=== PATIENT | female | born 2000 | race Caucasian/White ===

== ENCOUNTER 2022-05-12 15:13 | Emergency (ER) | payer OTHER, SELFPAY ==
[2022-05-12 15:47] VITALS: BP 112/65; PULSE 93; RESP 18; TEMP 36.5; O2SAT 97; BMI 34.3
--- NOTE | 2022-05-12 15:47 | ED.URI ---
HPI - URI/Sore Throat General Chief Complaint: Skin/Abscess/Foreign Body Stated Complaint: L Side Swollen Lymph Node Time Seen by Provider: 05/12/22 15:50 Source: patient Mode of arrival: ambulatory History of Present Illness HPI Narrative: 21-year-old female with no significant past medical history presenting to the ED complaining of red swollen painful lymph node to left groin since yesterday. Admits to increasing erythema to area. Denies fever, chills, nausea/vomiting, abdominal pain, dysuria, difficulty/inability to urinate/defecate. Denies pointing/drainage Onset (ago): day(s) Related Data Previous Rx's Medication Instructions Recorded cephalexin 500 mg capsule 500 mg PO QID 7 days #28 caps 05/12/22 doxycycline hyclate 100 mg tablet 100 mg PO BID 7 days #14 tabs 05/12/22 Allergies Allergy/AdvReac Type Severity Reaction Status Date / Time No Known Allergies Allergy Verified 05/12/22 15:51 Review of Systems Review of Systems: Constitutional: No Fever, No Chills ENT/Mouth: No Ear Pain, No Nasal Congestion, No Sinus Pain, No sore throat, No Rhinorrhea, No Swallowing Difficulty Cardiovascular: No Chest Pain, No SOB Respiratory: No Cough, No Sputum Gastrointestinal: No Nausea, No Vomiting, No Abdominal pain Genitourinary: No Dysuria, No Urinary Frequency, No Hematuria, No Flank Pain Musculoskeletal: No joint pain, No Myalgias, No Joint Swelling Skin: + Skin Lesions, No rash Neuro: No Weakness, No Numbness, No Paresthesias Yes all other systems are reviewed and are negative Constitutional: Constitutional: Reports as per [facility] Past Medical History Attestation statement: The following information was validated with the patient. Social History Social History Advance Directives: No Advance Directives Information Provided: Yes Physical Exam Vital Signs: Vital Signs: Last Vital Signs Temp 97.7 F 05/12/22 15:47 Pulse 93 05/12/22 15:47 Resp 18 05/12/22 15:47 BP 112/65 05/12/22 15:47 Pulse Ox 97 05/12/22 15:47 O2 Del Method 05/12/22 15:47 BMI result Body Mass Index 34.3 Const: General: cooperative, healthy appearing and no acute distress Orientation/consciousness: patient oriented x3 Limitations: no limitations HEENT: Head: Yes normal to inspection and Yes atraumatic Ears: hearing grossly normal bilaterally General nose exam: Normal external nose present Face and sinus: Yes normal facial exam Eyes: General: appearance normal, both eyes and all related structures EOM: EOMs intact bilaterally Neck: Neck: Yes normal visual inspection and Yes no meningeal signs Resp: Effort & Inspection: normal respiratory effort and no respiratory distress Cardio: Rate: regular rate Heart sounds: S1 normal heart sound present and S2 normal heart sound present GI: Inspection: Yes normal to inspection Palpation (GI): Soft to palpation and nontender Skin: Other: + small erythematous indurated lump to left groin/inguinal area with surrounding erythema/cellulitis and warmth. No fluctuance/pointing. Rashes: no rashes Neuro: General: patient oriented x3, tone normal and no meningeal signs Gait exam (Neuro): Normal gait present Extrem: General: Yes normal to inspection Medical Decision Making Medical Decision Making MDM Narrative: 21-year-old female with no significant past medical history presenting to the ED complaining of red swollen painful lymph node to left groin since yesterday. On exam vital signs stable, NAD, nontoxic appearing, physical exam as noted above. Concern for infected hair follicle/indurated abscess with surrounding cellulitis. No evidence of [place] gangrene. Plan: P.o. antibiotics, warm compresses, PCP follow-up Differential Diagnosis Differential Diagnoses: The differential diagnosis associated with the presentation includes as above Prescription Management I considered prescription management with: Pain Medication and Antibiotic Discharge Plan Discharge Clinical Impression: Abscess, Cellulitis Patient Disposition: Home, Self-Care Instructions: Cellulitis (ED), Abscess (ED), Warm Compress or Soak (ED) Additional Instructions: Keflex and doxy your antibiotics as prescribed. Apply warm compresses. Keep close eye on the area if is worsening, spreading, turns to duckworth return to the emergency department. Prescriptions: New cephalexin 500 mg capsule 500 mg PO QID 7 Days Qty: 28 0RF doxycycline hyclate 100 mg tablet 100 mg PO BID 7 Days Qty: 14 0RF Referrals: Physician,None [Primary Care Provider] -
== END 2022-05-12 16:12 | disposition home or self-care (01) ==
PROVIDERS: Emergency Provider Student in an Organized Health Care Education/Training Program
DX: L02.214 Cutaneous abscess of groin (principal); L03.314 Cellulitis of groin; R10.32 Left lower quadrant pain
CPT/HCPCS: 99282; 99283

== ENCOUNTER 2022-05-15 07:19 | Emergency (ER) | payer OTHER, SELFPAY ==
[2022-05-15 07:20] VITALS: BP 122/88; PULSE 81; RESP 18; TEMP 36.1; O2SAT 98; BMI 38.1
--- NOTE | 2022-05-15 08:11 | ED_ITS ---
HPI - Recheck/Abnormal Lab/Rx General Chief Complaint: Recheck/Abnormal Lab/Rx Stated Complaint: infection Time Seen by Provider: 05/15/22 07:58 Source: patient and old records reviewed Mode of arrival: ambulatory Limitations: no limitations History of Present Illness HPI narrative: 21 yo female presenting for evaluation of an ingrown hair/abscess that spontaneously drained this morning. She states she was seen here on 05/12 - diagnosed with ingrown hair w/ surrounding cellulitis, and was discharged with doxycycline and keflex. She states abscess was not incised. She reports this morning the abscess started draining on its own, mostly blood along with some pus. She reports ongoing pain but the surrounding redness is improved. No fevers at home. She has been compliant with antibiotics. MD complaint: wound re-check Initial visit (ago): day(s) () Initial visit for: cellulitis and abscess Returns today for: cellulitis follow-up Symptoms since prior visit: no new symptoms Context: other (Spontaneously started draining this morning that was concerned) Associated symptoms: none Treatments prior to arrival: heat therapy, dressings and given antibiotics on (05/12) Related Data Previous Rx's Medication Instructions Recorded cephalexin 500 mg capsule 500 mg PO QID 7 days #28 caps 05/12/22 doxycycline hyclate 100 mg tablet 100 mg PO BID 7 days #14 tabs 05/12/22 ibuprofen 600 mg tablet 600 mg PO Q8H PRN fever or pain 05/15/22 #14 tabs Allergies Allergy/AdvReac Type Severity Reaction Status Date / Time No Known Allergies Allergy Verified 05/12/22 15:51 Review of Systems Review of Systems: Yes all other systems are reviewed and are negative [facility] Social History Social History Advance Directives: No Advance Directives Information Provided: No Physical Exam Vital Signs: Vital Signs: Last Vital Signs Temp 96.9 F 05/15/22 07:20 Pulse 81 05/15/22 07:20 Resp 18 05/15/22 07:20 BP 122/88 05/15/22 07:20 Pulse Ox 98 05/15/22 07:20 O2 Del Method 05/15/22 07:20 BMI result Body Mass Index 38.1 Appearance: Alert. Oriented X3. No acute distress. HEENT: normal inspection CVS: Normal heart rate and rhythm. Pulses normal. Respiratory: No respiratory distress. Skin: Skin warm and dry. Normal skin color. Normal skin turgor. No rashes. Extremities: Left upper inguinal area with a small area of induration and mild erythema with central opening draining bloody material. No fluctuance. No inguinal lymphadenopathy. Neuro/psych: Oriented X 3. No motor deficit. No sensory deficit. Normal speech and cognition. Anxious Course Course Course Narrative: 21-year-old female presenting to the ER for evaluation of left inguinal abscess/ingrown hair that spontaneously opened on its own today. Area seems to be draining appropriately. No additional fluctuance or purulent material was able to be drained today we discussed the management of abscesses and cellulitis. She is on the appropriate antibiotic therapy. She will continue warm compresses at home. Motrin ordered for pain. She was given strict return precautions and is stable for discharge home. All questions were answered. Medical Decision Making Differential Diagnosis Differential Diagnoses: The differential diagnosis associated with the presentation includes Abscess, cellulitis, Fourneir's gangrene, necrotizing infection Independent Historian Clinical information obtained from an independent historian. History obtained from or confirmed by: Friend External Record Review External record reviewed: Outpatient record last ER visit 05/12 reviewed Tests considered The following testing was considered but not selected: no need for labs today, nontoxic, not septic appearing. Prescription Management I considered prescription management with: Pain Medication motrin ordered. no need to escalate to IV abx, continue PO doxy and keflex Critical Care Time Critical Care Time Critical Care Time: No Discharge Plan Discharge Clinical Impression: Abscess Patient Disposition: Home, Self-Care Instructions: Abscess Follow-up (ED) Additional Instructions: Continue previously prescribed antibiotics Use warm compresses several times per day to help increase blood flow and fight the infection If you notice increased redness or swelling, or develop fevers call your doctor or come back to the ER for further evaluation Prescriptions: New ibuprofen 600 mg tablet 600 mg PO Q8H PRN (Reason: fever or pain) Qty: 14 0RF No Action cephalexin 500 mg capsule 500 mg PO QID 7 Days Qty: 28 0RF doxycycline hyclate 100 mg tablet 100 mg PO BID 7 Days Qty: 14 0RF Stand Alone Forms: Work/School Release Interventions: ED Discharge Assessment Last Done: 05/15/22 08:18 Discharge Date/Time: 05/15/22 08:28
== END 2022-05-15 08:28 | disposition home or self-care (01) ==
LOC: HO.ED 08:20
PROVIDERS: Emergency Provider Emergency Medicine Emergency Medical Services
DX: L02.416 Cutaneous abscess of left lower limb (principal)
CPT/HCPCS: 99282; 99283

== ENCOUNTER 2025-04-13 01:55 | Emergency (ER) | payer OTHER, SELFPAY ==
--- NOTE | ~2025-04-13 | XR_ITS ---
CLINICAL HISTORY: constipation? low suspicion 1 view abdomen Comparison: None provided Findings: No pneumoperitoneum or pneumatosis. No abnormal calcifications. Moderate stool burden in the ascending colon. No acute fractures. IMPRESSION: The bowel gas pattern is normal This document has been electronically signed by: Ignacio Ghotra III, MD PHD on 04/13/2025 04:34:38
[2025-04-13 01:58] VITALS: BP 141/82; PULSE 84; RESP 20; TEMP 36.6; O2SAT 97; BMI 38.6
[2025-04-13 02:20] LABS: MANUAL DIFF FLAG NO
[2025-04-13 02:21] LABS: Hematocrit 43.7 % (37.0-47.0); Hemoglobin 15.2 g/dl (12.0-16.0); Imm Gran Abs Auto 0.04 X10*3/uL (0.00-0.03); Imm Gran Pct Auto 0.4 % (0.0-0.4); Lymphocytes Absolute Auto 1.9 X10*3/uL (1.2-4.9); Mean Corpuscular HGB Conc 34.8 g/dl (31.0-35.0); Mean Corpuscular Hemoglobin 28.1 pg (27.0-33.0); Mean Corpuscular Volume 80.9 fL (80.0-98.0); NRBC Abs Auto 0.000 X10*3/uL (0.0-0.012); NRBC Pct Auto 0.0 /100WBC (0.0-0.2); Platelet Count 170 X10*3/uL (160-400); Red Blood Count 5.40 X10*6/uL (4.20-5.50); White Blood Count 10.9 X10*3/uL (4.8-10.8)
--- OUTSIDE RECORDS SUMMARY | 2025-04-13 02:24 | XMS_ITS | Encounter Summary ---
Author Organization [facility] Address [address] [place] [id number] Phone Care Team Providers Care Stores Laborer Name Role Phone Uyen Acuña NP Primary Care Provider + Unknown, Unknown Primary Care Provider Yolanda augustine Pcp, Unknown Primary Care Provider Megan Lundberg Primary Care Provider Ivonne Kingston Primary Care Provider [phone] Encounter Details Date Type Department Care Team (Late st Contact Info) Description 09/07/2021 Procedure Pass [facility] [address] [place] [address] Social History Tobacco Use Types Packs/Day Years Used Date Smoking Tobacco: Never Smokeless Tobacco: Never Comments Unknown Sex and Gender Information Value Date Recorded Sex Assigned at Female 07/29/2021 3:50 PM EDT Legal Sex Female 8:47 PM EDT Gender Identity Female 07/29/2021 3:50 PM EDT Sexual Orientation Straight 07/29/2021 3: 50 PM EDT documented as of this encounter Plan of Treatment Not on file documented as of this encounter Visit Diagnoses Not on filedocumented in this encounter Additional Health Concerns Assessment Noted Time PHQ-9 Depression Total Score: 0 01/16/20 22 12:42 PM EDT PHQ-2 Depression Total Score: 0 01/16/20 22 12:42 PM EDT documented as of this encounter Care Teams Stores Laborer Relationship Specialty Start Date End Date Uyen Acuña NP [address] [place] [id number] PCP - General Family Medicine 07/29/21 01/17/22 Unknown, Unknown, PCP - General 01/18/22 02/14/22 Pcp, Unknown PCP - General 02/15/22 05/24/22 Megan Quintanilla PA [address] [place] [id number] PCP - General 05/25/22 10/30/23 Ivonne Kingston PA [address] [place] [id number] [email or web address] PCP - General Physician Filenet Developer 10/31/23 documented as of this encounter Additional Source Comments The information contained in this document represents components of the legal health record. It is not the complete legal health record.[facility]
--- OUTSIDE RECORDS SUMMARY | 2025-04-13 02:24 | XMS_ITS | Clinical Summary ---
Author Organization [facility] Address [address] [place] [id number] Phone Care Team Providers Care Pickle Pumper Name Role Phone Ivonne Kingston Primary Care Provider [phone] Allergies Active Allergy Reactions Criticality Noted Date Comments Levetiracetam 08/09/2022 Other reaction(s): Behavior change Medications melatonin 3 mg Tab Take 3 mg by mouth. Active cholecalciferol (VITAMIN D3) 400 unit tablet Take 400 Units by mouth daily. 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 Dysmenorrhea 08/09/2022 Overview (08/09/2022): Had US everything alright per patient Immunizations Immunization Administration Dates Next Due COVID-19 (Pre-02/28) Pfizer Vaccine, Bivalent 12+ 02/14/2022 COVID-19 (Pre-02/28) Pfizer Vaccine, mRNA, PF 02/20/2021,01/30/2021 Hepatitis B Adult 09/14/2021,,08/05/2000,1999,1999 INFLUENZA, SPLIT VIRUS, TRIVALENT PF 02/21/2024 Influenza, Unspecified Formulation 03/23/2023, MMR 12/23/2004,04/18/2001 Tdap 12/14/2011 Varicella 12/14/2011,11/14/2000 Family History Medical History Relation Comments No Known Problems Father Diabetes Maternal Grandmother AVM Mother Cancer Paternal Aunt Diabetes Paternal Grandfather Relation Status Comments Brother Alive Father Alive Maternal Grandfather Alive Maternal Grandmother Mother Alive Paternal Aunt Alive Paternal Grandfather Alive Social History Tobacco Use Types Packs/Day Years Used Date Smoking Tobacco: Never Smokeless Tobacco: Never Tobacco Cessation:Counseling Given: Not Answered Alcohol Use Standard Drinks/Week Comments Never 0 (1 standard drink = 0.6 oz pur e alcohol) Education Answer Date Recorded Are you interested in more education? Not on lauro e 09/03/2022 Are you concerned about learning? Not on file 09/03/2022 No 09/03/2022 No 09/03/2022 Digital Access Answer Date Recorded No 10/04/2022 No 10/04/2022 No 10/04/2022 Reliable internet access at home? Not on file 10/04/2022 Device with a working camera? Not on file Comments No Sex and Gender Information Value Date Recorded Sex Assigned at Female 07/29/2021 3:50 PM EDT Legal Sex Female 8:47 PM EDT Gender Identity Female 07/29/2021 3:50 PM EDT Sexual Orientation Straight 07/29/2021 3: 50 PM EDT Last Filed Vital Signs Vital Sign Reading Time Taken Comments Blood Pressure 108/74 08/09/2022 4:07 PM EDT Pulse 75 09/07/2021 2:59 PM EDT Temperature 36.6 C (97.8 F) 09/07/2021 2:59 PM EDT Respiratory Rate 16 09/07/2021 2:59 PM EDT Oxygen Saturation 99% 09/07/2021 2:59 PM EDT Inhaled Oxygen Concentration - - Weight 104.3 kg (230 lb) 12/26/2023 4:51 PM EDT Height 162.6 cm (5' 4 ) 12/26/2023 4:51 PM EDT Body Mass Index 39.48 12/26/2023 4:51 PM EDT Plan of Treatment Health Maintenance Due Date Last Done Comments SMOKING Hx and SMOKELESS TOBACCO SCREENING 11/05/2012 HEPATITIS C SCREENING 11/05/2017 HIV ONE-TIME SCREENING (18-65 YEARS) 11/05/2017 HPV VACCINES (2 - 3-dose series) 08/29/2020 08/01/2020 PAP SMEAR 11/05/2020 DEPRESSION SCREENING 01/15/2023 01/15/2022, 01/16/20 22 INFLUENZA VACCINE (#1) 2024 , 03/23/2023, 03/11/2022, Additional history exists COVID-19 VACCINE ( season) 2025 02/14/2022, 02/14/2022, 02/20/2021, Additional history exists Adult Td,Tdap Booster 05/24/2032 05/24/2022, 012 HIB VACCINES Completed 04/18/2001, 04/09, 03/07/2000, Additional history exists HEPATITIS A VACCINES Aged Out No long er eligible based on patient's age to complete this topic MENINGOCOCCAL VACCINES (ACWY) Aged Out No longer eligible based on patient's age to complete this topic MENINGOCOCCAL VACCINES (B) Aged Out N o longer eligible based on patient's age to complete this topic PNEUMOCOCCAL VACCINES (0-49 years) Aged Out No longer eligible based on patient's age to complete this topic Medical Devices Not on file Insurance [facility] PCP [employer] [address] [place] [address] NON NSPG PCP [facility] NON NSPG PCP [facility] NON NSPG PCP [facility] [facility] NON NSPG PCP [facility] [facility] NON NSPG PCP [employer] Care Teams Pickle Pumper Relationship Specialty Start Date End Date Ivonne Kingston PA [address] [place] [address] [email or web address] PCP - General Physician Fire Prevention Chief 10/31/23 Additional Source Comments The information contained in this document represents components of the legal health record. It is not the complete legal health record.[facility]
--- OUTSIDE RECORDS SUMMARY | 2025-04-13 02:24 | XMS_ITS | Encounter Summary ---
Author Organization [facility] Address [address] [place] [phone] Phone Care Team Providers Care Tip Bander Name Role Phone Ivonne Kingston Primary Care Provider [phone] Encounter Details Date Type Department Care Team (Late st Contact Info) Description 12/05/2023 Procedure Pass [facility], [address] [id number] Social History Tobacco Use Types Packs/Day Years Used Date Smoking Tobacco: Never Smokeless Tobacco: Never Alcohol Use Standard Drinks/Week Comments Never 0 [...] documented as of this encounter Care Teams Tip Bander Relationship Specialty Start Date End Date Ivonne Kingston PA [address] [address] [email or web address] PCP - General Physician Payroll Accounting Clerk 10/31/23 documented as of this encounter Additional Source Comments The information contained in this document represents components of the legal health record. It is not the complete legal health record.[facility]
[2025-04-13 02:36] LABS: Alanine Aminotransferase 20 U/L (0-31); Albumin Level 4.7 g/dL (3.5-5.0); Alkaline Phosphatase 78 U/L (39-117); Anion Gap 14 (12-20); Aspartate Amino Transferase 21 U/L (5-31); Blood Urea Nitrogen 14 mg/dL (9-16); Calcium 8.8 mg/dL (8.4-10.2); Carbon Dioxide 14 mmol/L (22-29); Chloride 117 mmol/L (96-108); Creatinine Clr Calc Pharmacy 108.6; Estimated Glomerular Filt Rate > 60; Potassium 3.5 mmol/L (3.3-5.1); Sodium 141 mmol/L (135-145); Total Protein 7.4 g/dL (6.5-8.0)
[2025-04-13 03:07] LABS: UPreg QC Valid YES
[2025-04-13 03:10] LABS: Appearance Urine Clear; Glucose Urine UA Negative (Negative); PH 5.0 (5.0-9.0); Specific Gravity - Urine 1.020 (1.005-1.025); UMIC TRIGGER UACC YES
[2025-04-13 03:12] LABS: UACC Culture Trigger YES
--- NOTE | 2025-04-13 03:49 | ED.ABDPAIN ---
HPI - Abdominal Pain General Chief Complaint: Abdominal Pain Stated Complaint: Stomach Pain Time Seen by Provider: 04/13/25 03:37 Source: patient Mode of arrival: ambulatory Limitations: no limitations History of Present Illness ED Provider: Dr. Yessica Jerry HPI narrative: Patient comes to the emergency room complaining of abdominal distention for the last 5 hours. Patient states that she believes that she has a small bowel obstruction. Patient has not had a small bowel obstruction before. Patient does not have any past surgical history. Complaining of nausea, no vomiting or diarrhea. Patient states that she has a lot of pressure in the bilateral parts of the abdomen. Denies fever or chills. Related Data Previous Rx's ?Medication ?Instructions ?Recorded cephalexin 500 mg capsule 500 mg PO QID 7 days #28 caps 05/12/22 doxycycline hyclate 100 mg tablet 100 mg PO BID 7 days #14 tabs 05/12/22 ibuprofen 600 mg tablet 600 mg PO Q8H PRN fever or pain 05/15/22 #14 tabs polyethylene glycol 3350 17 gram 17 g PO DAILY PRN laxative effect 04/13/25 oral powder packet (Miralax) #14 ea sulfamethoxazole 800 1 tab PO BID #5 tabs 04/13/25 mg-trimethoprim 160 mg tablet (Bactrim DS) Allergies Allergy/AdvReac Type Severity Reaction Status Date / Time No Known Allergies Allergy Verified 04/13/25 02:01 Review of Systems Review of Systems Constitutional : No Weight loss, No Fever, No Chills, No Night Sweats, No Fatigue, No Malaise ENT/Mouth : No Hearing loss, No Ear Pain, No Nasal Congestion, No Sinus Pain, No Hoarseness, No sore throat, No Rhinorrhea, No Swallowing Difficulty Eyes: No Eye Pain, No Swelling, No Redness, No Foreign Body, No Discharge, No Vision Changes Cardiovascular : No Chest Pain, No SOB, No Dyspnea on Exertion, No Orthopnea, No Edema, No Palpitations Respiratory : No Cough, No Sputum, No Wheezing, No Smoke Exposure, No Dyspnea Gastrointestinal : Complaining of Nausea, No Vomiting, No Diarrhea, No Constipation, complaining of the abdominal distention/pressure, discomfort Genitourinary : no irregular bleeding, No Dysuria, No Urinary Frequency, No Hematuria, No Urinary Incontinence, No Urgency, No Flank Pain, No Urinary Flow Changes, No Hesitancy Musculoskeletal : No joint pain, No Myalgias, No Joint Swelling Skin : No Skin Lesions, No rash Neuro : No Weakness, No Numbness, No Paresthesias, No Loss of Consciousness, No Dizziness, No Headache Psych : No Anxiety/Panic, No Depression, No SI/HI/AH/VH, No Social Issues, Heme/Lymph: No Bruising, No Bleeding,No Lymphadenopathy Endocrine : No Polyuria, No Polydipsia, No Temperature Intolerance [facility] Social History Social History Advance Directives: No Advance Directives Information Provided: No Physical Exam ED Exam Exam: Appearance: Alert. Oriented X3. No acute distress. Eyes: Pupils equal, round and reactive to light. ENT: Pharynx normal. Neck: Normal inspection. Neck supple. No lymph nodes noted. No crepitus CVS: Normal heart rate and rhythm. Pulses normal. Normal S1 and S2 Respiratory: No respiratory distress. Breath sounds normal. No Wheezing. No rales Abdomen: Soft , nondistended, mild pain to the patient over bilateral lower quadrants, no rebound or guarding, no flank pain, Skin: Skin warm and dry. Normal skin color. Normal skin turgor. Extremities: No lower extremity edema. No Lacerations. No Rash Neuro: Oriented X 3. No motor deficit. No sensory deficit. Moving all extremities. No slurred speech. CN 2 through 12 grossly intact Psych: calm, cooperative, normal affect Vital Signs: Vital Signs - 24 hr 04/13/25 01:58 Temperature 97.8 F Pulse Rate 84 Respiratory Rate 20 Blood Pressure 141/82 H Pulse Oximetry 97 Oxygen Delivery Method Room Air BMI result Body Mass Index 38.6 Medical Decision Making Medical Decision Making [facility] Narrative: My interpretation of labs: No significant abnormality in patient's hematology, chemistry fairly normal, no significant abnormality, normal LFTs, urinalysis positive for UTI, patient has leukocyte esterase, WBCs, +2 bacteria. Urinalysis negative for . Small amount of leukocyte esterase. On physical exam, I pushed pretty deep in all quadrants of the abdomen, no significant pain, no concerned for appendicitis or acute cholecystitis, also no concern for ovarian torsion KUB shows a large amount of stool in the ascending colon., no signs of obstruction. Patient was given the 1st dose of Bactrim in the ED Differential Diagnosis Differential Diagnoses: The differential diagnosis associated with the presentation includes (UTI, pyelonephritis, constipation) Lab Data MDM Lab Attestation statement: I reviewed the patient's lab results. 04/13/25 02:16 04/13/25 02:16 Labs: Lab Results 04/13/25 04/13/25 Range/Units 02:16 02:59 WBC 10.9 H (4.8-10.8) X10*3/uL RBC 5.40 (4.20-5.50) X10*6/uL Hgb 15.2 (12.0-16.0) g/dl Hct 43.7 (37.0-47.0) % MCV 80.9 (80.0-98.0) fL MCH 28.1 (27.0-33.0) pg MCHC 34.8 (31.0-35.0) g/dl RDW 12.3 (11.0-16.0) % Plt Count 170 (160-400) X10*3/uL MPV 11.3 (9.4-12.3) fL Immature Gran % (Auto) 0.4 (0.0-0.4) % Neut % (Auto) 76.2 H (45-73) % Lymph % (Auto) 17.1 L (20-40) % [place] % (Auto) 5.0 (2-11) % Eos % (Auto) 0.9 (0-4) % Baso % (Auto) 0.4 (0-2) % Lymph # (Auto) 1.9 (1.2-4.9) X10*3/uL [place] # (Auto) 0.5 (0.1-1.2) X10*3/uL Eos # (Auto) 0.1 (0.0-0.4) X10*3/uL Baso # (Auto) 0.0 (0.0-0.2) X10*3/uL Abs Immat Gran (auto) 0.04 H (0.00-0.03) X10*3/uL Absolute Neuts (auto) 8.3 (2.0-8.3) x10*3/uL Absolute Nucleated RBC 0.000 (0.0-0.012) X10*3/uL Nucleated RBC % (auto) 0.0 (0.0-0.2) /100WBC Sodium 141 (135-145) mmol/L Potassium 3.5 (3.3-5.1) mmol/L Chloride 117 H (96-108) mmol/L Carbon Dioxide 14 L (22-29) mmol/L Anion Gap 14 (12-20) BUN 14 (9-16) mg/dL Creatinine 0.92 (0.5-1.4) mg/dL Estim Creat Clear Calc 108.6 Estimated GFR > 60 Random Glucose 97 (60-115) mg/dL Calcium 8.8 (8.4-10.2) mg/dL Total Bilirubin 0.3 (0.0-1.0) mg/dL AST 21 (5-31) U/L ALT 20 (0-31) U/L Alkaline Phosphatase 78 (39-117) U/L Total Protein 7.4 (6.5-8.0) g/dL Albumin 4.7 (3.5-5.0) g/dL Urine Color Yellow Urine Appearance Clear Urine pH 5.0 (5.0-9.0) Ur Specific [place] 1.020 (1.005-1.025) Urine Protein Negative (Neg-Trace) mg/dL Urine Glucose (UA) Negative (Negative) mg/dL Urine Ketones Negative (Negative) mg/dL Urine Blood Negative (Negative) Urine Nitrite Negative (Negative) Ur Leukocyte Esterase Moderate (2+) H (Negative) Urine RBC 0-2 (0-2) /HPF Urine WBC 21-50 H (0-5) /HPF Ur Squamous Epith Cells 6-10 (0-2) /HPF Urine Bacteria 2+ (None Seen) Hyaline Casts 0-2 (0-2) /LPF Urine Test NEGATIVE (NEGATIVE) Independent Interpretation I performed an independent interpretation of an: Plain X-Ray Radiology Impression Discussion of test interpretation with radiology: I have reviewed the radiologist's reading. Radiologist Impression: No pneumoperitoneum or pneumatosis. No abnormal calcifications. Moderate stool burden in the ascending colon. No acute fractures. IMPRESSION: The bowel gas pattern is normal Tests considered The following testing was considered but not selected: I considered ordering a CT scan of the abdomen/pelvis. However, patient's abdominal physical exam was very benign and reassuring. Discharge Plan Discharge Clinical Impression: UTI (urinary tract infection), Constipation, Abdominal distension Patient Disposition: Home, Self-Care Instructions: Constipation (ED), Urinary Tract Infection in Women (ED), High Fiber Diet (ED), Abdominal Pain (ED) Additional Instructions: Please follow-up with your primary care physician tomorrow. If you have any worsening or new symptoms, please return to the emergency room or call 911 Prescriptions: New sulfamethoxazole-trimethoprim [Bactrim DS] 800-160 mg tablet 1 tab PO BID Qty: 5 0RF polyethylene glycol 3350 [Miralax] 17 gram powder in packet 17 g PO DAILY PRN (Reason: laxative effect) Qty: 14 0RF No Action cephalexin 500 mg capsule 500 mg PO QID 7 Days Qty: 28 0RF doxycycline hyclate 100 mg tablet 100 mg PO BID 7 Days Qty: 14 0RF ibuprofen 600 mg tablet 600 mg PO Q8H PRN (Reason: fever or pain) Qty: 14 0RF Print Language: Wolof
[2025-04-13] MEDS: Sulfamethox/Trimeth 800/160 TABLET 1 TAB PO (04:55)
[2025-04-13 05:03] VITALS: BP 140/96; PULSE 73; RESP 18; TEMP 36.6; O2SAT 98
[2025-04-13 05:04] VITALS: BP 140/96; PULSE 73; RESP 18; TEMP 36.6; O2SAT 98
== END 2025-04-13 05:21 | disposition home or self-care (01) ==
PROVIDERS: Emergency Provider Emergency Medicine; PCP Physician Assistant
DX: N39.0 Urinary tract infection, site not specified (principal); K59.00 Constipation, unspecified; R14.0 Abdominal distension (gaseous)
CPT/HCPCS: 36415; 74018; 80053; 81001; 81025; 85025; 87086; 99283

== ENCOUNTER → 2025-04-13 03:45 | Outpatient (BNV) | payer OTHER, SELFPAY | PROVIDERS: Emergency Provider Emergency Medicine; PCP Physician Assistant; Visit Provider Radiology Diagnostic Radiology | DX: K59.00 Constipation, unspecified (principal) | CPT/HCPCS: 74018 ==